=== PATIENT | female | born 1950 | race African-American/Black ===

== ENCOUNTER 2017-09-25 12:50 | Observation (INO) | payer MEDICARE, MEDICAID ==
[~2017-09-25] VITALS: Ht 154.9 cm; Wt 62.0 kg
[~2017-09-25 12:50] MED LIST: CEPH500C3 PO
[2017-09-25 12:56] VITALS: BP 200/79; PULSE 116; RESP 30; TEMP 98.4; O2SAT 95
[2017-09-25] MEDS ORDERED: SODIUM CHLORIDE 0.9% FLUSH 10 ML FLUSH IVF PRN (16:30)
--- NOTE | 2017-09-25 16:47 | RADRPT ---
EXAM DATE/TIME: 09/25/2017 16:34 [facility] COMPARISON: CHEST SINGLE AP, January 03, 2016, 12:28. INDICATIONS : Chest pain MEDICAL HISTORY : None. SURGICAL HISTORY : None. ENCOUNTER: Initial ACUITY: 2 days PAIN SCORE: 9/10 LOCATION: Left chest FINDINGS: There are patchy areas of atelectasis in the lung bases right greater than left. There is no pneumoth orax. The heart is normal in size. The mediastinal contours are within normal limits. The bony struct ures are intact. CONCLUSION: 1. Patchy areas of atelectasis in the lung bases. This is new when compared to previous of 01/03/16. U nderlying pneumonia is not excluded. Jose Edmonds MD on September 25, 2017 at 16:43 Board Certified Radiologist. This report was verified electronically.
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
[2017-09-25 16:56] VITALS: O2SAT 96
[2017-09-25 17:22] LABS: AUTOMATED NEUTROPHIL # 4.5 TH/MM3 (1.8-7.7); BASOPHIL % 0.3 % (0.0-2.0); EOSINOPHIL % 0.1 % (0.0-4.0); HEMATOCRIT 47.2 % (35.0-46.0); HEMOGLOBIN 15.7 GM/DL (11.6-15.3); LYMPH % 34.8 % (9.0-44.0); MEAN CELL VOLUME 88.2 FL (80.0-100.0); MEAN CORPUSCULAR HEMOGLOBIN 29.3 PG (27.0-34.0); MEAN CORPUSCULAR HGB CONC 33.3 % (32.0-36.0); MEAN PLATELET VOLUME 8.3 FL (7.0-11.0); MONO % 12.7 % (0.0-8.0); MONOCYTE # 1.1 TH/MM3 (0-0.9); NEUT % 52.1 % (16.0-70.0); PLATELET COUNT 206 TH/MM3 (150-450); RED BLOOD COUNT 5.35 MIL/MM3 (4.00-5.30); RED CELL DISTRIBUTION WIDTH 13.2 % (11.6-17.2); WHITE BLOOD COUNT 8.7 TH/MM3 (4.0-11.0)
[2017-09-25 17:25] LABS: INTERNATIONAL NORMALIZED RATIO 1.1 RATIO; PROTHROMBIN TIME - PATIENT 10.9 SEC (9.8-11.6)
[2017-09-25 17:42] LABS: BICARBONATE 29.7 MEQ/L (21.0-32.0); BLOOD UREA NITROGEN 13 MG/DL (7-18); CALCIUM 9.6 MG/DL (8.5-10.1); CHLORIDE 98 MEQ/L (98-107); CREATININE 0.75 MG/DL (0.50-1.00); GLOMERULAR FILTRATION RATE 94 ML/MIN (>89); GLUCOSE,RANDOM 116 MG/DL (74-106); MAGNESIUM 1.5 MG/DL (1.5-2.5); SODIUM (NA) 136 MEQ/L (136-145)
[2017-09-25 17:45] LABS: TROPONIN I 0.02 NG/ML (0.02-0.05)
[2017-09-25] MEDS ORDERED: cefTRIAXone INJ 1,000 MG in SODIUM CHLORIDE 0.9% INJ 100 ML IV ONE (18:15)
[2017-09-25 19:04] VITALS: BP 155/85; PULSE 113; RESP 18; TEMP 98.1; O2SAT 100
[2017-09-25 20:55] LABS: TROPONIN I 0.02 NG/ML (0.02-0.05)
[2017-09-25] MEDS ORDERED: AZIT250T3 PO (21:55)
[2017-09-25 21:57] VITALS: BP 140/88; PULSE 109; RESP 20; O2SAT 98
[2017-09-25] MEDS ORDERED: SODIUM CHLOR 0.9% 1000 ML INJ 1,000 ML IV ONE (22:00)
[2017-09-25] MEDS ORDERED: KETOROLAC TROMETHAMINE 30 MG/ML (IVP) VIAL IV PUSH ONE (22:00)
[2017-09-25] MEDS ORDERED: POTASSIUM CHLORIDE 20 MEQ CONTROLLED RELEASE TAB PO ONE (22:00)
[2017-09-25] MEDS ORDERED: SODIUM CHLORIDE 0.9% FLUSH 10 ML FLUSH IV FLUSH PRN (22:30)
[2017-09-25 23:00] VITALS: PULSE 67
[2017-09-26 00:32] VITALS: BP 122/66; PULSE 99; RESP 18; TEMP 99.9; O2SAT 96
[2017-09-26 01:55] LABS: TROPONIN I 0.03 NG/ML (0.02-0.05)
[2017-09-26 05:00] VITALS: BP 129/71; PULSE 97; RESP 18; TEMP 99.7; O2SAT 96
[2017-09-26 07:38] VITALS: BP 127/62; PULSE 98; RESP 18; TEMP 98.7; O2SAT 96
[2017-09-26 08:00] VITALS: PULSE 72
[2017-09-26] MEDS ORDERED: SODIUM CHLORIDE 0.9% FLUSH 10 ML FLUSH IV FLUSH SCH (09:00)
[2017-09-26] MEDS ORDERED: REGADENOSON INJ 0.4 MG/5 ML SYR ONE (10:03)
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
--- NOTE | 2017-09-26 12:10 | RADRPT ---
EXAM DATE/TIME: 09/26/2017 09:37 [facility] COMPARISON: No previous studies available for comparison. INDICATIONS : Angina. DOSE: 25.9 mCi Tc99m Myoview at stress. 8.1 mCi Tc99m Myoview at rest. 0.4 mg Lexiscan STRESS SYMPTOMS: None. EJECTION FRACTION: > 70% MEDICAL HISTORY : Hypertension. SURGICAL HISTORY : section. ENCOUNTER: Initial ACUITY: 1 day PAIN SCALE: 3/10 LOCATION: Bilateral chest TECHNIQUE: The patient underwent pharmacologic stress with infusion of prescribed dose. Continuous ECG tracing was monitored during stress. Gated SPECT imaging was performed after stress and conventional SPECT i maging was performed at rest. The examination was performed on a SPECT/CT scanner, both attenuation and non-corrected datasets were reviewed. FINDINGS: DISTRIBUTION: The maximum perfused segment at stress is in the inferior wall. PERFUSION STUDY: The pattern of perfusion at stress is within normal limits. GATED STUDY: There is intact wall motion and thickening without hypokinetic or dyskinetic segments. CONCLUSION: 1. No significant reversibility to suggest ischemia. 2. Normal wall motion with ejection fraction of greater than 70% RISK CATEGORY: Low (<1% Annual Mortality Rate) Valeriy Bland MD on September 26, 2017 at 12:06 Board Certified Radiologist. This report was verified electronically.
[2017-09-26 12:11] VITALS: BP 102/61
[2017-09-26] MEDS ORDERED: ZITHTAB PO (12:21)
--- NOTE | 2017-09-26 12:22 | HHI.DCPOC ---
Discharge Care Plan Diagnosis: (1) Chest pain (2) Tobacco abuse Goals to Promote Your Health * To prevent worsening of your condition and complications * To maintain your health at the optimal level Directions to Meet Your Goals Take your medications as prescribed Follow your dietary instruction Follow activity as directed Keep your appointments as scheduled Take your immunizations and boosters as scheduled If your symptoms worsen call your PCP, if no PCP go to Urgent Care Center or Emergency Room Smoking is Dangerous to Your Health. Avoid second hand smoke Call the 24-hour hour crisis hotline for domestic abuse at Berry Robertson Sep 26, 2017 12:22
--- NOTE | 2017-09-26 22:07 | TR ---
Date Performed: 09/26/2017 Time Performed: 10:07:49 DOCTOR: Ne Tian DRUG LIST: CLINICAL HISTORY: REASON FOR TEST: Angina REASON FOR ENDING: OBSERVATION: CONCLUSION: Lexiscan stress test was performed under standard four minute protocol. Radionuclid e was injected one minute prior to ending the test. No electrocardiographic abormalities were present to suggest ischemia. Nuclear imaging and interpretation are pending. COMMENTS:
--- NOTE | 2017-09-26 22:14 | EKG ---
Date Performed: 09/25/2017 Time Performed: 13:11:38 PTAGE: 66 years EKG: SINUS TACHYCARDIA WITH OCCASIONAL VENTRICULAR PREMATURE COMPLEXES POSSIBLE RIGHT ATRIAL ENL ARGEMENT POSSIBLE LEFT ATRIAL ENLARGEMENT ABNORMAL RHYTHM ECG Since PREVIOUS TRACING , no significant change noted PREVIOUS TRACIN04/06/2013 09.30 DOCTOR: Ne Tian Interpretating Date/Time 09/26/2017 22:13:47
--- NOTE | 2017-09-26 22:18 | EKG ---
Date Performed: 09/25/2017 Time Performed: 21:35:20 PTAGE: 66 years EKG: SINUS TACHYCARDIA WITH SHORT ME INTERVAL LEFT ATRIAL ENLARGEMENT BORDERLINE LEFT AXIS DEVIA TION POSSIBLE LEFT VENTRICULAR HYPERTROPHY ABNORMAL ECG Since PREVIOUS TRACING , no significant change noted PREVIOUS TRACIN09/25/2017 13.11 DOCTOR: Ne Tian Interpretating Date/Time 09/26/2017 22:17:32
--- NOTE | 2017-09-26 22:21 | EKG ---
Date Performed: 09/26/2017 Time Performed: 00:39:21 PTAGE: 66 years EKG: Sinus rhythm MODERATE VOLTAGE CRITERIA FOR LVH, CONSIDER NORMAL VARIANT BORDERLINE ECG Since PREVIOUS TRACING , no significant change noted PREVIOUS TRACIN09/25/2017 21.35 DOCTOR: Ne Tian Interpretating Date/Time 09/26/2017 22:20:16
== END 2017-09-26 18:35 | disposition home or self-care (01) ==
LOC: NEPC 12:50 → NEDA 22:25 → NEPHCDU 22:59
PROVIDERS: ADMIT Internal Medicine Cardiovascular Disease; ATTEND Internal Medicine Cardiovascular Disease
DX: R07.89 Other chest pain (principal); R94.31 Abnormal electrocardiogram [ECG] [EKG]; D72.829 Elevated white blood cell count, unspecified; J45.909 Unspecified asthma, uncomplicated; J98.11 Atelectasis; F17.210 Nicotine dependence, cigarettes, uncomplicated; M54.9 Dorsalgia, unspecified; G89.29 Other chronic pain
CPT/HCPCS: 71045; 78452; 80048; 82550; 82552; 83735; 84484; 85025; 85610; 85730; 93005; 93017; 96361; 96365; 96366; 96375; 99285; A9502; G0378; J0696; J1885; J2785; J7030

== ENCOUNTER 2017-09-28 05:50 | Emergency (ER) | payer MEDICARE, MEDICAID ==
[~2017-09-28] VITALS: Ht 162.6 cm; Wt 61.5 kg
[2017-09-28 05:50] VITALS: BP 133/73; PULSE 112; RESP 22; TEMP 99.2; O2SAT 96
[~2017-09-28 05:50] MED LIST changes: -CEPH500C3 PO; +ZITHTAB PO
--- NOTE | 2017-09-28 06:20 | PD ---
HPI Chief Complaint: General Weakness Time Seen by Provider: 05:52 Travel History International Travel<30 days: No Contact w/Intl Traveler<30days: No Traveled to known affect area: No History of Present Illness HPI The patient is a 66-year-old homeless female who was discharged on the fourth of this month from [facility] for chest pain. Her chest x-ray showed patchy areas of atelectasis and she was treated with antibiotics for possible pneumonia. The chest pain myocardial perfusion scan apparently was normal. She was cleared of heart disease. She was [place] [facility] [place] [facility] a [facility] there to this hospital. The patient requested to go to [facility]. The patient complains of generalized myalgias. Most of her pains are in the chest but some are in the left neck and shoulder and some in the left flank. She does not have any nausea, vomiting or diarrhea. The patient had these similar pains when she was admitted to the hospital at [facility] in [facility]. The patient has not filled the prescription for the antibiotics has not taken any of her antibiotics. PFSH Past Medical History Asthma: Yes Heart Rhythm Problems: No Cardiac Catheterization: No Cardiovascular Problems: No High Cholesterol: No Congestive Heart Failure: No Diabetes: No Diminished Hearing: No Gastrointestinal Disorders: No Genitourinary: No Heparin Induced Thrombocytopen: No Hypertension: No Immune Disorder: No Musculoskeletal: Yes (CHRONIC BACK PAIN) Neurologic: No Psychiatric: No Reproductive: No Respiratory: Yes (PNEUMONIA) Immunizations Current: No ?: Not Menopausal: Yes Past Surgical History Section: Yes Coronary Artery Bypass Graft: No Gynecologic Surgery: Yes () Other Surgery: Yes Family History Family Myocardial Infarction: No Social History Alcohol Use: Yes Tobacco Use: Yes Substance Use: Yes ("CRACK") Allergies-Medications (Allergen,Severity, Reaction): Coded Allergies: propoxyphene (Unverified Allergy, Severe, SWELLING, 05/06/17) Reported Meds & Prescriptions Reported Meds & Active Scripts Active Zithromax Z-Ru (Azithromycin) 250 Mg Dspk 250 Mg PO DIRECTED 500 MG (2 tabs) day 1, then 1 tab days 2-5. Review of Systems Except as stated in HPI: all other systems reviewed are Neg Physical Exam Narrative GENERAL: The patient is alert, oriented 3. She will not move, even sit up in bed because of pain. She continually calls and pain and will not even allow adequate examination because of her pain. Except for pulse rate of 112, her vital signs are normal. SKIN: Focused skin assessment warm/dry. HEAD: Atraumatic. Normocephalic. EYES: Pupils equal and round. No scleral icterus. No injection or drainage. ENT: No nasal bleeding or discharge. Mucous membranes pink and moist. NECK: Trachea midline. No JVD. I can completely reproduce the patient's pain by pressing on the left neck, left shoulder area, chest and left flank. CARDIOVASCULAR: Regular rate and rhythm. No murmur appreciated. RESPIRATORY: No accessory muscle use. Clear to auscultation. Breath sounds equal bilaterally. GASTROINTESTINAL: Abdomen soft, non-tender, nondistended. Hepatic and splenic margins not palpable. MUSCULOSKELETAL: No obvious deformities. No clubbing. No cyanosis. No edema. NEUROLOGICAL: Awake and alert. No obvious cranial nerve deficits. Motor grossly within normal limits. Normal speech. PSYCHIATRIC: Appropriate mood and affect; insight and judgment normal. Data Data Last Documented VS Vital Signs Date Time Temp Pulse Resp B/P (MAP) Pulse Ox O2 Delivery O2 Flow Rate FiO2 09/28/17 06:09 96 09/28/17 05:50 99.2 112 22 133/73 (93) Orders Orders Electrocardiogram (09/28/17 06:20) Ckmb (Isoenzyme) Profile (09/28/17 06:20) Complete Blood Count With Diff (09/28/17 06:20) Comprehensive Metabolic Panel (09/28/17 06:20) Magnesium (Mg) (09/28/17 06:20) Troponin I (09/28/17 06:20) Ecg Monitoring (09/28/17 06:20) Iv Access Insert/Monitor (09/28/17 06:20) Oximetry (09/28/17 06:20) Oxygen Administration (09/28/17 06:20) Sodium Chloride 0.9% Flush (Ns Flush) (09/28/17 06:30) Chest, Pa & Lat (09/28/17 06:20) Ketorolac Inj (Toradol Inj) (09/28/17 06:30) MDM Medical Decision Making Medical Screen Exam Complete: Yes Emergency Medical Condition: Yes Medical Record Reviewed: Yes Interpretation(s) The EKG shows sinus tachycardia with a rate of [address] elevation or depression. Differential Diagnosis Musculoskeletal pain, malingering to obtain a bed, acute coronary syndrome- unlikely, pulmonary embolus-unlikely, pneumonia, electrolyte disorder Narrative Course The patient has intractable pain and the blood work is not back yet. The chest x-ray is not back. The patient will be transferred to Dr. Alvarez. Antony Prince MD Sep 28, 2017 06:20
[2017-09-28] MEDS ORDERED: SODIUM CHLORIDE 0.9% FLUSH 10 ML FLUSH IVF PRN (06:30)
[2017-09-28] MEDS ORDERED: KETOROLAC TROMETHAMINE 60 MG/2 ML (IM) VIAL IVP ONE (06:30)
[2017-09-28 06:54] VITALS: BP 112/71; PULSE 65; RESP 16; O2SAT 96
--- NOTE | 2017-09-28 06:58 | RADRPT ---
EXAM DATE/TIME: 09/28/2017 06:28 [facility] COMPARISON: No previous studies available for comparison. INDICATIONS : Left chest pain. MEDICAL HISTORY : Hypertension. SURGICAL HISTORY : section. ENCOUNTER: Initial ACUITY: 1 day PAIN SCORE: 9/10 LOCATION: Left chest FINDINGS: PA and lateral views of the chest. Linear opacity of the lung bases indicating subsegmental atelectas is. The lungs are otherwise clear. Cardiomediastinal silhouette within normal limits. No evidence of pleural effusion or pneumothorax. CONCLUSION: Basilar subsegmental atelectasis. No other acute cardiopulmonary disease identifi ed. Gerhard Vogel MD on September 28, 2017 at 6:56 Board Certified Radiologist. This report was verified electronically.
[2017-09-28 07:15] LABS: AUTOMATED NEUTROPHIL # 4.2 TH/MM3 (1.8-7.7); BASOPHIL # 0.1 TH/MM3 (0-0.2); BASOPHIL % 0.9 % (0.0-2.0); EOSINOPHIL % 0.3 % (0.0-4.0); HEMATOCRIT 37.5 % (35.0-46.0); HEMOGLOBIN 12.3 GM/DL (11.6-15.3); LYMPH % 27.1 % (9.0-44.0); LYMPHOCYTE # 1.9 TH/MM3 (1.0-4.8); MEAN CELL VOLUME 86.7 FL (80.0-100.0); MEAN CORPUSCULAR HEMOGLOBIN 28.4 PG (27.0-34.0); MEAN CORPUSCULAR HGB CONC 32.8 % (32.0-36.0); MEAN PLATELET VOLUME 8.1 FL (7.0-11.0); MONO % 10.7 % (0.0-8.0); MONOCYTE # 0.8 TH/MM3 (0-0.9); PLATELET COUNT 216 TH/MM3 (150-450); RED BLOOD COUNT 4.33 MIL/MM3 (4.00-5.30); RED CELL DISTRIBUTION WIDTH 12.2 % (11.6-17.2)
[2017-09-28 07:22] LABS: CHLORIDE 101 MEQ/L (98-107); SODIUM (NA) 135 MEQ/L (136-145)
[2017-09-28 07:26] LABS: ALBUMIN 2.7 GM/DL (3.4-5.0); BLOOD UREA NITROGEN 15 MG/DL (7-18); CALCIUM 8.7 MG/DL (8.5-10.1); GLUCOSE,RANDOM 111 MG/DL (74-106); MAGNESIUM 1.6 MG/DL (1.5-2.5)
[2017-09-28 07:29] LABS: ALT (GPT) 61 U/L (10-53); AST (GOT) 57 U/L (15-37); CREATININE 0.71 MG/DL (0.50-1.00); GLOMERULAR FILTRATION RATE 100 ML/MIN (>89)
[2017-09-28 07:31] LABS: TOTAL BILIRUBIN ADULT 0.8 MG/DL (0.2-1.0); TOTAL PROTEIN 7.7 GM/DL (6.4-8.2)
[2017-09-28 07:32] LABS: ALKALINE PHOSPHATASE 58 U/L (45-117)
[2017-09-28 07:34] LABS: TROPONIN I LESS THAN 0.02 NG/ML (0.02-0.05)
--- NOTE | 2017-09-28 07:45 | PD ---
HPI Chief Complaint: General Weakness Time Seen by Provider: 07:37 Travel History International Travel<30 days: No Contact w/Intl Traveler<30days: No Traveled to known affect area: No History of Present Illness HPI Care assumed from Dr. Prince The patient is a 66-year-old homeless female who was discharged on the fourth of this month from [facility] for chest pain. Her chest x-ray showed patchy areas of atelectasis and she was treated with antibiotics for possible pneumonia. The chest pain myocardial perfusion scan apparently was normal. She was cleared of heart disease. She was brought from the "cold" homeless [facility] in [place] at a [facility] to this hospital. The patient requested to go to [facility]. The patient complains of generalized myalgias. Most of her pains are in the chest but some are in the left neck and shoulder and some in the left flank. She does not have any nausea, vomiting or diarrhea. The patient had these similar pains when she was admitted to the hospital at [facility] in [facility]. The patient has not filled the prescription for the antibiotics has not taken any of her antibiotics. PFSH Past Medical History Asthma: Yes Heart Rhythm Problems: No Cardiac Catheterization: No Cardiovascular Problems: No High Cholesterol: No Congestive Heart Failure: No Diabetes: No Diminished Hearing: No Gastrointestinal Disorders: No Genitourinary: No Heparin Induced Thrombocytopen: No Hypertension: No Immune Disorder: No Musculoskeletal: Yes (CHRONIC BACK PAIN) Neurologic: No Psychiatric: No Reproductive: No Respiratory: Yes (PNEUMONIA) Immunizations Current: No ?: Not Menopausal: Yes Past Surgical History Section: Yes Coronary Artery Bypass Graft: No Gynecologic Surgery: Yes () Other Surgery: Yes Family History Family Myocardial Infarction: No Social History Alcohol Use: Yes Tobacco Use: Yes Substance Use: Yes ("CRACK") Allergies-Medications (Allergen,Severity, Reaction): Coded Allergies: propoxyphene (Unverified Allergy, Severe, SWELLING, 05/06/17) Reported Meds & Prescriptions Reported Meds & Active Scripts Active Zithromax Z-Ru (Azithromycin) 250 Mg Dspk 250 Mg PO DIRECTED 500 MG (2 tabs) day 1, then 1 tab days 2-5. Review of Systems General / Constitutional: No: Fever Eyes: No: Visual changes HENT: No: Headaches Cardiovascular: No: Chest Pain or Discomfort Respiratory: No: Shortness of Breath Gastrointestinal: No: Abdominal Pain Genitourinary: No: Dysuria Musculoskeletal: Positive: Myalgias, Arthralgias, No: Pain Skin: No Rash Neurologic: No: Weakness Psychiatric: No: Depression Endocrine: No: Polydipsia Hematologic/Lymphatic: No: Easy Bruising Physical Exam Narrative GENERAL: Well-nourished, well-developed patient. SKIN: Focused skin assessment warm/dry. HEAD: Normocephalic. EYES: No scleral icterus. No injection or drainage. NECK: Supple, trachea midline. No JVD or lymphadenopathy. CARDIOVASCULAR: Regular rate and rhythm without murmurs, gallops, or rubs. RESPIRATORY: Breath sounds equal bilaterally. No accessory muscle use. GASTROINTESTINAL: Abdomen soft, non-tender, nondistended. MUSCULOSKELETAL: No cyanosis, or edema. Reproducible pain in the left pectoral left trapezius and left cervical paraspinous region BACK: Nontender without obvious deformity. No CVA tenderness. Data Data Last Documented VS Vital Signs Date Time Temp Pulse Resp B/P (MAP) Pulse Ox O2 Delivery O2 Flow Rate FiO2 09/28/17 07:53 98.7 95 16 126/74 (91) 98 Room Air Orders Orders Electrocardiogram (09/28/17 06:20) Ckmb (Isoenzyme) Profile (09/28/17 06:20) Complete Blood Count With Diff (09/28/17 06:20) Comprehensive Metabolic Panel (09/28/17 06:20) Magnesium (Mg) (09/28/17 06:20) Troponin I (09/28/17 06:20) Ecg Monitoring (09/28/17 06:20) Iv Access Insert/Monitor (09/28/17 06:20) Oximetry (09/28/17 06:20) Oxygen Administration (09/28/17 06:20) Sodium Chloride 0.9% Flush (Ns Flush) (09/28/17 06:30) Chest, Pa & Lat (09/28/17 06:20) Ketorolac Inj (Toradol Inj) (09/28/17 06:30) CKMB (09/28/17 07:00) CKMB% (09/28/17 07:00) Labs Laboratory Tests Test 09/28/17 07:00 White Blood Count 7.0 TH/MM3 Red Blood Count 4.33 MIL/MM3 Hemoglobin 12.3 GM/DL Hematocrit 37.5 % Mean Corpuscular Volume 86.7 FL Mean Corpuscular Hemoglobin 28.4 PG Mean Corpuscular Hemoglobin Concent 32.8 % Red Cell Distribution Width 12.2 % Platelet Count 216 TH/MM3 Mean Platelet Volume 8.1 FL Neutrophils (%) (Auto) 61.0 % Lymphocytes (%) (Auto) 27.1 % Monocytes (%) (Auto) 10.7 % Eosinophils (%) (Auto) 0.3 % Basophils (%) (Auto) 0.9 % Neutrophils # (Auto) 4.2 TH/MM3 Lymphocytes # (Auto) 1.9 TH/MM3 Monocytes # (Auto) 0.8 TH/MM3 Eosinophils # (Auto) 0.0 TH/MM3 Basophils # (Auto) 0.1 TH/MM3 CBC Comment DIFF FINAL Differential Comment Blood Urea Nitrogen 15 MG/DL Creatinine 0.71 MG/DL Random Glucose 111 MG/DL Total Protein 7.7 GM/DL Albumin 2.7 GM/DL Calcium Level 8.7 MG/DL Magnesium Level 1.6 MG/DL Alkaline Phosphatase 58 U/L Aspartate Amino Transf (AST/SGOT) 57 U/L Alanine Aminotransferase (ALT/SGPT) 61 U/L Total Bilirubin 0.8 MG/DL Sodium Level 135 MEQ/L Potassium Level 3.5 MEQ/L Chloride Level 101 MEQ/L Carbon Dioxide Level 27.0 MEQ/L Anion Gap 7 MEQ/L Estimat Glomerular Filtration Rate 100 ML/MIN Total Creatine Kinase 176 U/L Creatine Kinase MB 1.4 NG/ML Troponin I LESS THAN 0.02 NG/ML MDM Medical Decision Making Medical Screen Exam Complete: Yes Emergency Medical Condition: Yes Differential Diagnosis Malingering, acute coronary syndrome, musculoskeletal pain Narrative Course Assessment and plan discussed with patient at bedside. Labs within normal limits. Cardiac enzymes negative. Last 72 hours Impressions Chest X-Ray 09/28/17 0620 Signed Impressions: Service Date/Time: Thursday, September 28, 2017 06:28 - CONCLUSION: Basilar subsegmental atelectasis. No other acute cardiopulmonary disease identified. Gerhard Vogel MD Breakfast provided at discharge Diagnosis Primary Impression: Musculoskeletal pain Patient Instructions: General Instructions Additional Instructions: Encourage nonsteroidal anti-inflammatories warm heat gentle stretching and strengthening and massage. Follow-up with PCP. Return to emergency with any onset of new symptoms. Med/Other Pt SpecificInfo: No Meds Exist/No RX given Disposition: 01 DISCHARGE HOME Condition: Good Norm Alvarez MD Sep 28, 2017 07:45
[2017-09-28 07:52] VITALS: O2SAT 98
[2017-09-28 07:53] VITALS: BP 126/74; PULSE 95; RESP 16; TEMP 98.7; O2SAT 98
--- NOTE | 2017-09-28 12:51 | EKG ---
Date Performed: 09/28/2017 Time Performed: 06:33:56 PTAGE: 66 years EKG: SINUS TACHYCARDIA WITH SHORT WY INTERVAL LEFT ATRIAL ENLARGEMENT POSSIBLE LEFT VENTRICULAR HYPERTROPHY ABNORMAL ECG Since PREVIOUS TRACING , no significant change noted PREVIOUS TRACIN09/26/2017 00.39 DOCTOR: Jake Carter Interpretating Date/Time 09/28/2017 12:50:56
== END 2017-09-28 09:36 | disposition home or self-care (01) ==
LOC: PHED 05:50
DX: M79.1 Myalgia (principal); R00.0 Tachycardia, unspecified; F14.90 Cocaine use, unspecified, uncomplicated; Z72.0 Tobacco use; Z59.0 Homelessness
CPT/HCPCS: 71046; 80053; 82550; 82552; 83735; 84484; 85025; 93005; 96374; 99285; J1885